=== PATIENT | male | born 1945 | race Caucasian/White ===

== ENCOUNTER → 2018-06-02 | Day surgery (SDC) | payer MEDICARE, OTHER ==
[~2018-06-02] VITALS: Ht 165.1 cm; Wt 74.8 kg
[~2018-06-02] MED LIST: ATORVASTATIN CA20 MG PO; AVODART0.5 MG PO; BENZOCAINE 20% SPR 60 ML CAN ONE; DIGOXIN125 MCG PO; ELIQUIS PO; LIDOCAINE HCL 2% LOCAL INJ 5 ML SDV VIAL INJ ONE; METOPROLOL SUCC25 MG PO; PROPOFOL IV EMULSION 10 MG/ML 20 ML VIAL ONE; SODIUM CHLORIDE 0.9% 1000ML 1,000 ML ONE
[2018-06-02 09:52] LABS: BASOPHILS % 0.4 % (0.0-1.0); EOSINOPHILS # (AUTO) 0.2 (0.0-0.4); HEMOGLOBIN 14.9 g/dL (14.0-18.0); LYMPHOCYTES # (AUTO) 1.6 (1.0-3.2); LYMPHOCYTES % 31.5 % (18.0-39.1); MEAN CORPUSCULAR HEMOGLOBIN 31.4 pg (28-32); MEAN CORPUSCULAR HGB CONC 33.9 g/dL (31-35); MEAN CORPUSCULAR VOLUME 92.6 fL (81-99); MONOCYTES # (AUTO) 0.4 (0.2-0.8); MONOCYTES % 8.4 % (4.4-11.3); NEUTROPHILS # (AUTO) 2.8 (2.1-6.9); NEUTROPHILS % 56.3 % (38.7-80.0); PLATELET COUNT 174 x10e3/uL (140-360); RED BLOOD COUNT 4.75 x10e6/uL (4.3-5.7); RED CELL DISTRIBUTION WIDTH 12.2 % (11.7-14.4)
[2018-06-02 10:28] LABS: ANION GAP 10.8 mmol/L (8-16); BLOOD UREA NITROGEN 13 mg/dL (7-26); BUN/CREATININE RATIO 12 (6-25); CALCIUM 9.5 mg/dL (8.4-10.2); CARBON DIOXIDE 28 mmol/L (22-29); CHLORIDE 104 mmol/L (98-107); CREATININE, SERUM 1.09 mg/dL (0.72-1.25); EST GLOMERULAR FILTRATION RATE > 60 ML/MIN (60-); GLUCOSE 102 mg/dL (74-118); POTASSIUM 4.8 mmol/L (3.5-5.1); SODIUM 138 mmol/L (136-145)
[2018-06-02 10:30] VITALS: BP 129/88
[2018-06-02 12:38] VITALS: BP 116/69
[2018-06-02 12:46] VITALS: BP 123/75
[2018-06-02 12:50] VITALS: BP 130/75
--- OUTSIDE RECORDS SUMMARY | 2018-06-03 17:07 | XMS REPORT ---
Author Author Ashlee Hu Organization [employer] Address Unknown Phone Unavailable Care Team Providers Care Cook Syrup Maker Name Role Phone Ashlee Hu CP Unavailable Encounters Encounter Location Date Requesting pain meds without office visit [facility] Aug 17, 2014 pain in bilat knees, hips, legs Zoc Doc [facility] Jul 28, 2014 MRI Wrist Right [facility] Aug 01, 2014 New Appointment Request [facility] Aug 10, 2014 Social History Social History Element Qualifiers Date Reported Smoking status: . Are you a: Former Smoker Jul 28, 2014 alcohol yes. Jul 28, 2014 Summary Purpose [employer]ClinicalWorks Submission
--- OUTSIDE RECORDS SUMMARY | 2018-06-03 17:07 | XMS REPORT ---
Author Author Ashlee Hu Organization [employer] Address Unknown Phone Unavailable Care Team Providers Care Male Infertility Specialist Name Role Phone Ashlee Hu CP Unavailable Encounters Encounter Location Date Requesting pain meds without office visit [facility] Aug 17, 2014 Follow up Routine [facility] Aug 22, 2014 rx [facility] Aug 31, 2014 Follow up Routine [facility] Sep 19, 2014 pain in bilat knees, hips, legs Zoc Doc [facility] Jul 28, 2014 MRI Wrist Right [facility] Aug 01, 2014 New Appointment Request [facility] Aug 10, 2014 Update Demographics - Personal Info [facility] Oct 04, 2014 Problems Problem Type Condition ICD-9 Code Onset Dates Condition Status Problem Generalized osteoarthrosis, involving multiple sites 715.09 Active Social History Social History Element Qualifiers Date Reported Smoking status: . Are you a: Former Smoker Sep 19, 2014 alcohol yes. Sep 19, 2014 Summary Purpose [employer]ClinicalWorks Submission
--- OUTSIDE RECORDS SUMMARY | 2018-06-03 17:07 | XMS REPORT ---
Author Author Ashlee Hu Organization [employer] Address Unknown Phone Unavailable Care Team Providers Care Cordage Sales Representative Name Role Phone Ashlee Hu CP Unavailable Encounters Encounter Location Date Requesting pain meds without office visit [facility] Aug 17, 2014 Follow up Routine [facility] Aug 22, 2014 rx [facility] Aug 31, 2014 pain in bilat knees, hips, legs Zoc Doc [facility] Jul 28, 2014 MRI Wrist Right [facility] Aug 01, 2014 New Appointment Request [facility] Aug 10, 2014 Social History Social History Element Qualifiers Date Reported Smoking status: . Are you a: Former Smoker Aug 22, 2014 alcohol yes. Aug 22, 2014 Summary Purpose [employer]ClinicalWorks Submission
--- OUTSIDE RECORDS SUMMARY | 2018-06-03 17:07 | XMS REPORT | Continuity of Care Document ---
Author Author [facility] Address Unknown Phone Unavailable Problems Problem Status Onset Date Classification Date Reported Comments Source osteoporosis screening Active Diagnosis 08/23/2014 Ashlee Najam Headache Active Diagnosis 08/23/2014 Ashlee Najam Generalized osteoarthrosis, involving multiple sites Active Problem 10/17/2015 Ashlee Najam Cervicalgia Active Diagnosis 08/23/2014 Ashlee Najam Pain in joint, hand Active Diagnosis 08/04/2014 Ashlee Najam Stiffness of joint, not elsewhere classified, hand Active Diagnosis 08/04/2014 Ashlee Najam Effusion of hand joint Active Diagnosis 08/04/2014 Ashlee Najam Swelling of limb Active Diagnosis 08/04/2014 Ashlee Najam Pain in joint, pelvic region and thigh Active Diagnosis 07/30/2014 Ashlee Najam Pain in joint, lower leg Active Diagnosis 07/30/2014 Ashlee Najam Primary osteoarthritis of knees, bilateral Active Problem 10/17/2015 Ashlee Najam Finger pain, right Active Diagnosis 09/19/2015 Ashlee Najam Trigger middle finger of right hand Active Diagnosis 09/19/2015 Ashlee Najam Counseling NOS Active Diagnosis 09/19/2015 Ashlee Najam Medications Medication Details Route Status Patient Instructions Ordering Provider Order Date Source Diclofenac Sodium 1 tab(s) Orally Active 75 MG Orally Twice a day as needed Najam 03/16/2016 Ashlee Najam Voltaren as directed Transdermal Active 1 % Transdermal tid prn to bilateral hands Najam 09/18/2015 Ashlee Najam Naproxen 1 tablet Orally Active 250 MG Orally as needed Najam Ashlee Najam Avodart 1 capsule Orally Active 0.5 MG Orally twice a week Najam Ashlee Najam Allergies, Adverse Reactions, Alerts Substance Category Reaction Severity Reaction type Status Date Reported Comments Source sulfa Adverse Reaction Info Not Available Adverse Reaction Active 09/18/2015 Ashlee Najam Immunizations Immunization Date Given Site Status Last Updated Comments Source Results Order Name Results Value Reference Range Date Interpretation Comments Source Vital Signs Vital Sign Value Date Comments Source Height 65 09/18/2015 Ashlee Hu Diastolic (mm Hg) 74 09/18/2015 Ashlee Hu Systolic (mm Hg) 127 09/18/2015 Ashlee Hu Weight 171.4 09/18/2015 Ashleechristiano Hu Height 65 08/22/2014 Ashleechristiano Hu Diastolic (mm Hg) 80 08/22/2014 Ashlee Naalix Systolic (mm Hg) 148 08/22/2014 Ashlee Hu Weight 173 08/22/2014 Ashlee Hu Height 65 07/28/2014 Ashleechristiano Hu Diastolic (mm Hg) 83 07/28/2014 Ashleechristiano Hu Systolic (mm Hg) 132 07/28/2014 Ashlee Hu Weight 174 07/28/2014 Ashlee Hu Encounters Location Location Details Encounter Type Encounter Number Reason For Visit Attending Provider ADM Date DC Date Status Source Rheumatology Clinic pain in bilat knees, hips, legs Zoc Doc [id number] 07/28/2014 07/28/2014 [facility] Clinic pain in bilat knees, hips, legs Zoc Doc [id number] 07/28/2014 07/28/2014 [facility] Rhe[facility] Clinic pain in bilat knees, hips, legs Zoc Doc [id number] 07/28/2014 07/28/2014 [facility] Rhe[facility]ology Clinic pain in bilat knees, hips, legs Zoc Doc [id number] 07/28/2014 07/28/2014 [facility] Rhe[facility] Clinic pain in bilat knees, hips, legs Zoc Doc [id number] 07/28/2014 07/28/2014 [facility] Clinic pain in bilat knees, hips, legs Zoc Doc [id number] 07/28/2014 07/28/2014 [facility] Clinic pain in bilat knees, hips, legs Zoc Doc [id number] 07/28/2014 07/28/2014 [facility] Clinic pain in bilat knees, hips, legs Zoc Doc [id number] 07/28/2014 07/28/2014 [facility] Clinic pain in bilat knees, hips, legs Zoc Doc [id number] 07/28/2014 07/28/2014 [facility] Clinic pain in bilat knees, hips, legs Zoc Doc [id number] 07/28/2014 07/28/2014 [facility] Clinic MRI Wrist Right [id number] 08/01/2014 08/01/2014 [facility] MRI Wrist Right [id number] 08/01/2014 08/01/2014 [facility] MRI Wrist Right [id number] 08/01/2014 08/01/2014 [facility] MRI Wrist Right [id number] 08/01/2014 08/01/2014 [facility] MRI Wrist Right [id number] 08/01/2014 08/01/2014 [facility] MRI Wrist Right [id number] 08/01/2014 08/01/2014 [facility] MRI Wrist Right [id number] 08/01/2014 08/01/2014 [facility] MRI Wrist Right [id number] 08/01/2014 08/01/2014 [facility] MRI Wrist Right [id number] 08/01/2014 08/01/2014 [facility] New Appointment Request [id number] 08/10/2014 08/10/2014 [facility] New Appointment Request [id number] 08/10/2014 08/10/2014 [facility] New Appointment Request [id number] 08/10/2014 08/10/2014 [facility] New Appointment Request [id number] 08/10/2014 08/10/2014 [facility] New Appointment Request [id number] 08/10/2014 08/10/2014 [facility] New Appointment Request [id number] 08/10/2014 08/10/2014 [facility] New Appointment Request [id number] 08/10/2014 08/10/2014 [facility] New Appointment Request [id number] 08/10/2014 08/10/2014 [facility] Requesting pain meds without office visit [id number] 08/17/2014 08/17/2014 [facility] Requesting pain meds without office visit [id number] 08/17/2014 08/17/2014 [facility] Requesting pain meds without office visit [id number] 08/17/2014 08/17/2014 [facility] Requesting pain meds without office visit [id number] 08/17/2014 08/17/2014 [facility] Requesting pain meds without office visit [id number] 08/17/2014 08/17/2014 [facility] Requesting pain meds without office visit [id number] 08/17/2014 08/17/2014 [facility] Requesting pain meds without office visit [id number] 08/17/2014 08/17/2014 [facility] Requesting pain meds without office visit [id number] 08/17/2014 08/17/2014 [facility] Follow up Routine [id number] 08/22/2014 08/22/2014 [facility] Follow up Routine [id number] 08/22/2014 08/22/2014 [facility] Follow up Routine [id number] 08/22/2014 08/22/2014 [facility] Follow up Routine [id number] 08/22/2014 08/22/2014 [facility] Follow up Routine [id number] 08/22/2014 08/22/2014 [facility] Follow up Routine [id number] 08/22/2014 08/22/2014 [facility] rx [id number] 08/31/2014 08/31/2014 [facility] rx [id number] 08/31/2014 08/31/2014 [facility] rx [id number] 08/31/2014 08/31/2014 [facility] rx [id number] 08/31/2014 08/31/2014 [facility] rx [id number] 08/31/2014 08/31/2014 [facility] Follow up Routine [id number] 09/19/2014 09/19/2014 [facility] Follow up Routine [id number] 09/19/2014 09/19/2014 [facility] Follow up Routine [id number] 09/19/2014 09/19/2014 [facility] Follow up Routine [id number] 09/19/2014 09/19/2014 [facility] Update Demographics - Personal Info [id number] 10/05/2014 10/05/2014 [facility] Update Demographics - Personal Info [id number] 10/05/2014 10/05/2014 [facility] Update Demographics - Personal Info [id number] 10/05/2014 10/05/2014 [facility] Update Demographics - Personal Info [id number] 10/05/2014 10/05/2014 [facility] Rhe[facility]ology [facility] patient credit [id number] 01/13/2015 01/13/2015 [facility]ology [facility] patient credit [id number] 01/13/2015 01/13/2015 [facility] patient credit [id number] 01/13/2015 01/13/2015 [facility] Rheumatology [facility] routine follow up [id number] 01/16/2015 01/16/2015 [facility] routine follow up [id number] 01/16/2015 01/16/2015 [facility] routine follow up [id number] 01/16/2015 01/16/2015 [facility] routine follow up [id number] 05/15/2015 05/15/2015 [facility] routine follow up [id number] 05/15/2015 05/15/2015 [facility] routine follow up [id number] 05/15/2015 05/15/2015 [facility] routine [id number] 09/18/2015 09/18/2015 [facility] routine [id number] 09/18/2015 09/18/2015 [facility] routine [id number] 09/18/2015 09/18/2015 [facility] MRI results [id number] 09/21/2015 09/21/2015 [facility] MRI results [id number] 09/21/2015 09/21/2015 [facility] Clinic needs rx [id number] 10/16/2015 10/16/2015 Ashlee Hu Procedures Procedure Code Date Perfomer Comments Source
--- OUTSIDE RECORDS SUMMARY | 2018-06-03 17:07 | XMS REPORT ---
Author Author Ashlee Hu Organization [employer] Address Unknown Phone Unavailable Care Team Providers Care Casino Slot Supervisor Name Role Phone Ashlee Hu CP Unavailable Allergies, Adverse Reactions, Alerts Substance Reaction Event Type sulfa Info Not Available Non Drug Allergy Encounters Encounter Location Date pain in bilat knees, hips, legs Zo Doc [facility] Jul 28, 2014 Problems Problem Type Condition ICD-9 Code Onset Dates Condition Status Assessment Pain in joint, hand 719.44 Active Assessment Pain in joint, pelvic region and thigh 719.45 Active Assessment Pain in joint, lower leg 719.46 Active Medications Medication Code System Code Instructions Start Date End Date Status Dosage Naproxen MEDISPAN [address]-24 250 MG Orally as needed Active 1 tablet Avodart MEDISPAN [address]-99 0.5 MG Orally Once a day Active 1 capsule Social History Social History Element Qualifiers Date Reported Smoking status: . Are you a: Former Smoker Jul 28, 2014 alcohol yes. Jul 28, 2014 Vital Signs Date/Time: Jul 28, 2014 Height 65 in Blood Pressure Diastolic 83 mm Hg Blood Pressure Systolic 132 mm Hg Weight 174 lbs Summary Purpose eClinicalWorks Submission
--- OUTSIDE RECORDS SUMMARY | 2018-06-03 17:07 | XMS REPORT ---
Author Author Ashlee Hu Organization [employer] Address Unknown Phone Unavailable Care Team Providers Care Fiberglass Laminator Name Role Phone Ashlee Hu CP Unavailable Encounters Encounter Location Date pain in bilat knees, hips, legs Zoc Doc [facility] Jul 28, 2014 MRI Wrist Right [facility] Aug 01, 2014 Problems Problem Type Condition ICD-9 Code Onset Dates Condition Status Assessment Pain in joint, hand 719.44 Active Assessment Stiffness of joint, not elsewhere classified, hand 719.54 Active Assessment Effusion of hand joint 719.04 Active Assessment Swelling of limb 729.81 Active Social History Social History Element Qualifiers Date Reported Smoking status: . Are you a: Former Smoker Jul 28, 2014 alcohol yes. Jul 28, 2014 Summary Purpose [employer]ClinicalWorks Submission
--- OUTSIDE RECORDS SUMMARY | 2018-06-03 17:07 | XMS REPORT ---
Author Author Ashlee Hu Organization [employer] Address Unknown Phone Unavailable Care Team Providers Care Adoption Manager Name Role Phone Fritz Ashlee CP Unavailable Allergies, Adverse Reactions, Alerts Substance Reaction Event Type sulfa Info Not Available Non Drug Allergy Encounters Encounter Location Date Requesting pain meds without office visit [facility] Aug 17, 2014 Follow up Routine [facility] Aug 22, 2014 rx [facility] Aug 31, 2014 Follow up Routine [facility] Sep 19, 2014 pain in bilat knees, hips, legs Zoc Doc [facility] Jul 28, 2014 routine follow up [facility] May 15, 2015 MRI Wrist Right [facility] Aug 01, 2014 routine [facility] Sep 18, 2015 New Appointment Request [facility] Aug 10, 2014 patient credit [facility] January 13, 2015 Update Demographics - Personal Info [facility] Oct 04, 2014 routine follow up [facility] January 16, 2015 Problems Problem Type Condition ICD-9 Code Onset Dates Condition Status Problem Generalized osteoarthrosis, involving multiple sites 715.09 Active Assessment Primary osteoarthritis of knees, bilateral M17.0 Active Problem Primary osteoarthritis of knees, bilateral M17.0 Active Assessment Finger pain, right M79.644 Active Assessment Trigger middle finger of right hand M65.331 Active Assessment Counseling NOS Z71.9 Active Medications Medication Code System Code Instructions Start Date End Date Status Dosage Avodart MEDISPAN [address]-55 0.5 MG Orally twice a week Active 1 capsule Voltaren MEDISPAN [address]-00 1 % Transdermal tid prn to bilateral hands Sep 18, 2015 Mar 16, 2016 Active as directed Diclofenac Sodium MEDISPAN [address]-63 75 MG Orally Twice a day as needed Mar 16, 2016 Active 1 tab(s) Social History Social History Element Qualifiers Date Reported Smoking status: . Are you a: Former Smoker Sep 18, 2015 alcohol yes. Sep 18, 2015 Vital Signs Date/Time: Sep 18, 2015 Height 65 in Blood Pressure Diastolic 74 mm Hg Blood Pressure Systolic 127 mm Hg Weight 171.4 lbs Results CBC w/DIFF, PLATELET CT. Summary Purpose eClinicalWorks Submission
--- OUTSIDE RECORDS SUMMARY | 2018-06-03 17:07 | XMS REPORT ---
Author Author Ashlee Hu Organization [employer] Address Unknown Phone Unavailable Care Team Providers Care Sweet Dough Mixer Name Role Phone Ashlee Hu CP Unavailable [...] follow up [facility]ology [facility] January 16, 2015 MRI results [facility] Sep 21, 2015 needs rx [facility] October 16, 2015 routine follow up [facility] May 15, 2015 routine [facility] Sep 18, 2015 Problems Problem Type Condition ICD-9 Code Onset Dates Condition Status Problem Generalized osteoarthrosis, involving multiple sites 715.09 Active Problem Primary osteoarthritis of knees, bilateral M17.0 Active Medications Medication Code System Code Instructions Start Date End Date Status Dosage Voltaren MEDISPAN [address]-94 1 % Transdermal tid prn to bilateral hands Sep 18, 2015 Apr 13, 2016 Active as directed Social History Social History Element Qualifiers Date Reported Smoking status: . Are you a: Former Smoker Sep 18, 2015 alcohol yes. Sep 18, 2015 Summary Purpose [employer]ClinicalWorks Submission
--- OUTSIDE RECORDS SUMMARY | 2018-06-03 17:07 | XMS REPORT ---
Author Author Ashlee Hu Organization [employer] Address Unknown Phone Unavailable Care Team Providers Care Family Centered Specialist Name Role Phone Ashlee Hu CP [...]
--- OUTSIDE RECORDS SUMMARY | 2018-06-03 17:07 | XMS REPORT ---
Author Author Ashlee Hu Organization [employer] Address Unknown Phone Unavailable Care Team Providers Care Egg Setter Name Role Phone Ashlee Hu CP Unavailable [...] MRI results [facility] Sep 21, 2015 routine follow up [facility] May 15, 2015 routine [facility] Sep 18, 2015 Problems Problem Type Condition ICD-9 Code Onset Dates Condition Status Problem Generalized osteoarthrosis, involving multiple sites 715.09 Active Problem Primary osteoarthritis of knees, bilateral M17.0 Active Social History Social History Element Qualifiers Date Reported Smoking status: . Are you a: Former Smoker Sep 18, 2015 alcohol yes. Sep 18, 2015 Summary Purpose eClinicalWorks Submission
== END | disposition home or self-care (01) ==
LOC: CATH LAB 12:00 → EDSTATUS 12:00
PROVIDERS: ATTEND Internal Medicine Cardiovascular Disease
DX: I48.91 Unspecified atrial fibrillation (principal); I34.0 Nonrheumatic mitral (valve) insufficiency; E78.5 Hyperlipidemia, unspecified; I10 Essential (primary) hypertension
CPT/HCPCS: 36415; 80048; 85025; 93312; 93320; 93325; J2001; J7030

== ENCOUNTER → 2018-10-14 | Outpatient (CLI) | payer MEDICARE, OTHER ==
[~2018-10-14] MED LIST changes: -BENZOCAINE 20% SPR 60 ML CAN ONE; -LIDOCAINE HCL 2% LOCAL INJ 5 ML SDV VIAL INJ ONE; -PROPOFOL IV EMULSION 10 MG/ML 20 ML VIAL ONE; -SODIUM CHLORIDE 0.9% 1000ML 1,000 ML ONE
--- NOTE | 2018-10-14 13:13 | Diagnostic Imaging Report ---
CT BRAIN WO HISTORY: TIA COMPARISON: None. Technique: Noncontrast axial scans were obtained from skull base to the vertex. Coronal and sagittal reconstructions obtained from the axial data. One or more of the following dose reduction techniques were used: Automated exposure control, adjustment of the mA and/or kV according to patient size, and/or utilization of iterative reconstruction technique. DISCUSSION: Scalp/Skull: Unremarkable. Brain sulci: Mildly prominent. Ventricles: Compensatory dilatation. Extra-axial spaces: No masses or fluid collections. Carotid siphon calcifications are present. Parenchyma: Mild bilateral deep white matter hypodensity is likely chronic microvascular ischemic change. Otherwise, no masses, hemorrhage, or large vascular territory acute infarct. Dural sinuses: No abnormal densities. Sellar/Suprasellar region: Intact. Skull base: Intact. Incidental findings: None. IMPRESSION: 1. No acute intracranial abnormalities. 2. Mild supratentorial chronic microvascular ischemic change. Mild generalized cerebral volume loss. Signed by: Dr. Sunday Tripathi M.D. on 10/14/2018 1:10 PM
== END ==
LOC: CT 12:26
PROVIDERS: ATTEND Internal Medicine Cardiovascular Disease
DX: G45.9 Transient cerebral ischemic attack, unspecified (principal)
CPT/HCPCS: 70450

== ENCOUNTER 2019-01-04 17:58 | Emergency (ER) | payer MEDICARE, OTHER ==
[~2019-01-04] VITALS: Ht 165.1 cm; Wt 74.8 kg
--- OUTSIDE RECORDS SUMMARY | 2019-01-04 18:01 | XMS REPORT ---
Author [facility] Address Unknown Phone Unavailable Care Team Providers Care Solderer Electronic Name Role Phone Miesha ASTUDILLO Unavailable Unavailable Payers Payer Name Policy Type Policy Number Effective Date Expiration Date Problems This patient has no known problems. Allergies, Adverse Reactions, Alerts Allergy Name Allergy Type Status Severity Reaction(s) Onset Date Inactive Date Treating Clinician Comments Sulfa (Sulfonamide Antibiotics) DA Active SV 2018-06-03 00:00:00 No Known Allergies DA Active U 2018-06-02 00:00:00 Medications This patient has no known medications. Results Test Description Test Time Test Comments Text Results Atomic Results Result Comments CT BRAIN WO 2018-10-14 13:07:00 [facility] [address] [place] [address] Patient Name: SHRUTHI MOODY MR #: [id number] : 1945 Age/Sex: 73/M Req #: [id number] Adm Physician: Ordered by: JAMIE ASTUDILLO MD Report #: [id number] Location: [place] Room/Bed: Procedure: [id number] CT/CT BRAIN WO Exam Date: 10/14/18 Exam Time: 1245 REPORT STATUS: Signed CT BRAIN WO HISTORY: TIA COMPARISON: None. Technique: Noncontrast axial scans were obtained from skull base to the vertex. Coronal and sagittal reconstructions obtained from the axial data. One or more of the following dose reduction techniques were used: Automated exposure control, adjustment of the mA and/or kV according to patient size, and/or utilization of iterative reconstruction technique. DISCUSSION: Scalp/Skull: Unremarkable. Brain sulci: Mildly prominent. Ventricles: Compensatory dilatation. Extra-axial spaces: No masses or fluid collections. Carotid siphon calcifications are present. Parenchyma: Mild bilateral deep white matter hypodensity is likely chronic microvascular ischemic change. Otherwise, no masses, hemorrhage, or large vascular territory acute infarct. Dural sinuses: No abnormal densities. Sellar/Suprasellar region: Intact. Skull base: Intact. Incidental findings: None. IMPRESSION: 1. No acute intracranial abnormalities. 2. Mild supratentorial chronic microvascular ischemic change. Mild generalized cerebral volume loss. Signed by: Dr. Sunday Tripathi M.D. on 10/14/2018 1:10 PM Dictated By: SUNDAY TRIPATHI MD [id number] Transcribed By: HOWARD on 10/14/18 1310 COPY TO: JAMIE ASTUDILLO MD
--- OUTSIDE RECORDS SUMMARY | 2019-01-04 18:01 | XMS REPORT | Summary of Care ---
Author Organization Unknown Address Unknown Phone Unavailable Encounter HQ Germanr_paxton(JERI) [id number] Date(s): 08/30/14 - 08/30/14 [facility] Outpatient Imaging [place] [address], [place] [address] Discharge Disposition: Home Physician Attending: Ashlee Hu MD Reason for Visit V82.81 - SCREEN - OSTEOP Problem List No data available for this section Allergies, Adverse Reactions, Alerts No data available for this section Medications No data available for this section Medications Administered During Your Visit No data available for this section Immunizations No data available for this section
--- OUTSIDE RECORDS SUMMARY | 2019-01-04 18:01 | XMS REPORT | Continuity of Care Document ---
Author Author [facility] Interface Address Unknown Phone Unavailable Problems Problem Status Onset Date Classification Date Reported Comments Source DX: R10.12 Active 08/25/2018 [facility] OSTEO Active 08/23/2014 [facility] Pain in joint, hand Active Diagnosis 08/04/2014 Ashlee Naalix Stiffness of joint, not elsewhere classified, hand Active Diagnosis 08/04/2014 Ashlee Nakevanm Effusion of hand joint Active Diagnosis 08/04/2014 Ashlee Najam Swelling of limb Active Diagnosis 08/04/2014 Ashlee Naalix Generalized osteoarthrosis, involving multiple sites Active Problem 10/17/2015 Ashlee Nakevanm Pain in joint, pelvic region and thigh Active Diagnosis 07/30/2014 Aslhee Nakevanm Pain in joint, lower leg Active Diagnosis 07/30/2014 Ashlee Nakevanm Primary osteoarthritis of knees, bilateral Active Problem 10/17/2015 Ashlee Nakevanm Finger pain, right Active Diagnosis 09/19/2015 Ashlee Nakevanm Trigger middle finger of right hand Active Diagnosis 09/19/2015 [facility] NOS Active Diagnosis 09/19/2015 [facility]leechristiano Encarn[facility] osteoporosis screening Active Diagnosis 08/23/2014 Ashlee Nakevanm Headache Active Diagnosis 08/23/2014 Ashlee Nakevanm Cervicalgia Active Diagnosis 08/23/2014 Ashlee Naalix LEFT UPPER QUADRANT PAIN Active [facility] Medications Medication Details Route Status Patient Instructions Ordering Provider Order Date Source Diclofenac Sodium 1 tab(s) Orally Active 75 MG Orally Twice a day as needed Najam 03/16/2016 Ashlee Naalix Voltaren as directed Transdermal Active 1 % Transdermal tid prn to bilateral hands Najam 09/18/2015 Ashlee Naalix Naproxen 1 tablet Orally Active 250 MG Orally as needed Najam Ashlee Encarnacionm Avodart 1 capsule Orally Active 0.5 MG Orally twice a week Najam Ashlee Hu Allergies, Adverse Reactions, Alerts Substance Category Reaction Severity Reaction type Status Date Reported Comments Source sulfa Adverse Reaction Info Not Available Adverse Reaction Active 09/18/2015 Ashlee Hu Immunizations Immunization Date Given Site Status Last Updated Comments Source Results Order Name Results Value Reference Range Date Interpretation Comments Source Abdomen/Pelvis w IV contrast CT Abdomen/Pelvis w IV contrast CT EXAM: CT ABDOMEN PELVIS WITH CONTRAST CLINICAL INDICATION: 73 years old Male with - R10.12 Left upper quadrant pain, pain with urinating, history of urinary tract infection. TECHNIQUE: GI CONTRAST: None. IV CONTRAST: 100 cc of Omnipaque-300 Axial post-contrast images were obtained from the lower chest to the symphysis pubis. Coronal and sagittal reconstruction images were performed. CT imaging performed at this location utilizes radiation dose optimization techniques which include one or more of the following: -Automated exposure control -Adjustment of the mA and/or kV according to patient size -Use of iterative reconstruction technique CT Radiation Dose DLP 516 mGy-cm COMPARISON: None. FINDINGS: LOWER CHEST: 6 mm right lower lobe nodule (series 3, image 19). The visualized lung bases are otherwise clear. Normal size of the heart is noted. SOLID ORGANS: Scattered hepatic cysts measuring up to 2.3 cm. A few additional subcentimeter hepatic hypodensities are noted which are too small to characterize. No intrahepatic biliary ductal dilatation is seen. No calcified gallstone is noted. The spleen, pancreas, and adrenal glands are normal in appearance. Both kidneys demonstrate normal corticomedullary phase of enhancement. No renal/ureteral calculus, hydronephrosis, or mass is apparent. 4 mm right renal cortical hypodensity which is too small to characterize, though statistically likely represents a cyst. BOWEL: Small hiatal hernia. The small bowel and colon are normal in caliber without wall thickening. A normal appendix is identified. PERITONEUM: No free intraperitoneal fluid or air. Small fat-containing left inguinal hernia. RETROPERITONEUM: Normal caliber of the abdominal aorta is noted. No lymphadenopathy is seen. PELVIS: Mild bladder wall thickening. Prostate is mildly enlarged measuring 5.0 cm transverse. MUSCULOSKELETAL: No acute osseous abnormality is seen. No destructive lytic or blastic osseous lesion is noted. IMPRESSION: 1. Mild prostatomegaly. 2. Mild bladder wall thickening. Consider correlation with urinalysis. 3. Small hiatal hernia. 4. Scattered liver cysts. Additional subcentimeter hepatic hypodensities are too small to characterize, though may also represent cysts. 5. Subcentimeter right renal cortical hypodensity which is too small to characterize, though statistically likely represents a cyst. 6. Right lower lobe pulmonary nodule measuring 6 mm. If the patient has high-risk factors for primary pulmonary malignancy, follow up CT chest at 6-12 months and then at 18-24 months if no change is advised. If the patient is at low risk, CT chest at 6-12 months is suggested with optional CT at 18-24 months. SL: [id number] 08/28/2018 - - Read by: Xander Rodriguez MD Dictated Date/time: 08/28/18 09:22 Electronically Signed by: Xander Rodriguez MD 08/28/18 09:58 FINAL REPORT [facility] Vital Signs Vital Sign Value Date Comments Source Height 65 09/18/2015 Ashlee Najam Diastolic (mm Hg) 74 09/18/2015 Ashlee Najam Systolic (mm Hg) 127 09/18/2015 Ashlee Najam Weight 171.4 09/18/2015 Ashlee Najam Height 65 08/22/2014 Ashlee Najam Diastolic (mm Hg) 80 08/22/2014 Ashlee Najam Systolic (mm Hg) 148 08/22/2014 Ashlee Najam Weight 173 08/22/2014 Ashlee Najam Height 65 07/28/2014 Ashlee Najam Diastolic (mm Hg) 83 07/28/2014 Ashlee Najam Systolic (mm Hg) 132 07/28/2014 Ashlee Najam Weight 174 07/28/2014 Ashlee Najam Encounters Location Location Details Encounter Type Encounter Number Reason For Visit Attending Provider ADM Date DC Date Status Source Rheumatology Clinic pain in bilat knees, hips, legs [facility] Doc [id number] 07/28/2014 07/28/2014 Ashlee Najam Rheumatology Clinic pain in bilat knees, hips, legs [facility] Doc [id number] 07/28/2014 07/28/2014 Ashlee Najam Rheumatology Clinic pain in bilat knees, hips, legs [facility] Doc [id number] 07/28/2014 07/28/2014 Ashlee Najam [facility]ology Clinic pain in bilat knees, hips, legs [facility] Doc [id number] 07/28/2014 07/28/2014 Ashlee Najam [facility] pain in bilat knees, hips, legs [facility] Doc [id number] 07/28/2014 07/28/2014 Ashlee Najam [facility] pain in bilat knees, hips, legs [facility] Doc [id number] 07/28/2014 07/28/2014 Ashlee Najam [facility] pain in bilat knees, hips, legs [facility] Doc [id number] 07/28/2014 07/28/2014 Ashlee Najam [facility] pain in bilat knees, hips, legs [facility] Doc [id number] 07/28/2014 07/28/2014 Ashlee Naja [facility] pain in bilat knees, hips, legs [facility] Doc [id number] 07/28/2014 07/28/2014 Ashlee Naja [facility] pain in bilat knees, hips, legs Zoc Doc [id number] 07/28/2014 07/28/2014 Ashlee Naja [facility] MRI Wrist Right [id number] 08/01/2014 08/01/2014 Ashlee Naja [facility] MRI Wrist Right [id number] 08/01/2014 08/01/2014 Ashlee Naja [facility] MRI Wrist Right [id number] 08/01/2014 08/01/2014 Ashlee Naja [facility] MRI Wrist Right [id number] 08/01/2014 08/01/2014 [facility] Rheumatology Clinic MRI Wrist Right [id number] 08/01/2014 08/01/2014 [facility] Rheumatology Clinic MRI Wrist Right [id number] 08/01/2014 08/01/2014 [facility] Rheumatology Clinic MRI Wrist Right [id number] 08/01/2014 08/01/2014 [facility] Rheumatology Clinic MRI Wrist Right [id number] 08/01/2014 08/01/2014 [facility] Rheumatology Clinic MRI Wrist Right [id number] 08/01/2014 08/01/2014 [facility] Rheumatology Clinic New Appointment Request [id number] 08/10/2014 08/10/2014 [facility] Rheumatology Clinic New Appointment Request [id number] 08/10/2014 08/10/2014 [facility] Rheumatology Clinic New Appointment Request [id number] 08/10/2014 08/10/2014 [facility] Rheumatology Clinic New Appointment Request [id number] 08/10/2014 08/10/2014 [facility] Rheumatology Clinic New Appointment Request [id number] 08/10/2014 08/10/2014 [facility] Rheumatology Clinic New Appointment Request [id number] 08/10/2014 08/10/2014 [facility] Rheumatology Clinic New Appointment Request [id number] 08/10/2014 08/10/2014 [facility] Rheumatology Clinic New Appointment Request [id number] 08/10/2014 08/10/2014 [facility] Rheumatology Clinic Requesting pain meds without office visit [id number] 08/17/2014 08/17/2014 [facility]ology Clinic Requesting pain meds without office visit [id number] 08/17/2014 08/17/2014 [facility] Rheumatology Clinic Requesting pain meds without office visit [id number] 08/17/2014 08/17/2014 [facility] Rheumatology Clinic Requesting pain meds without office visit [id number] 08/17/2014 08/17/2014 [facility] Rheumatology Clinic Requesting pain meds without office visit [id number] 08/17/2014 08/17/2014 [facility] Rheumatology Clinic Requesting pain meds without office visit [id number] 08/17/2014 08/17/2014 [facility] Rheumatology Clinic Requesting pain meds without office visit [id number] 08/17/2014 08/17/2014 [facility] Rheumatology Clinic Requesting pain meds without office visit [id number] 08/17/2014 08/17/2014 [facility] Rheumatology Clinic Follow up Routine [id number] 08/22/2014 08/22/2014 [facility] Rheumatology Clinic Follow up Routine [id number] 08/22/2014 08/22/2014 Ashlee Encarnacion Rhe[facility]ology Clinic Follow up Routine [id number] 08/22/2014 08/22/2014 [facility] Follow up Routine [id number] 08/22/2014 08/22/2014 [facility] Follow up Routine [id number] 08/22/2014 08/22/2014 [facility] Follow up Routine [id number] 08/22/2014 08/22/2014 [facility] [place] [facility] [id number] Ashlee Hu 08/30/2014 08/31/2014 [facility] [place] [facility] rx [id number] 08/31/2014 08/31/2014 [facility] rx [id number] 08/31/2014 08/31/2014 [facility] rx [id number] 08/31/2014 08/31/2014 [facility] rx [id number] 08/31/2014 08/31/2014 [facility] rx [id number] 08/31/2014 08/31/2014 [facility] Follow up Routine [id number] 09/19/2014 09/19/2014 [facility] Follow up Routine [id number] 09/19/2014 09/19/2014 [facility] Rheumatology Clinic Follow up Routine [id number] 09/19/2014 09/19/2014 [facility] Rheumatology Clinic Follow up Routine [id number] 09/19/2014 09/19/2014 [facility] Rheumatology Clinic Update Demographics - Personal Info [id number] 10/05/2014 10/05/2014 [facility] Rheumatology Clinic Update Demographics - Personal Info [id number] 10/05/2014 10/05/2014 [facility] Rheumatology Clinic Update Demographics - Personal Info [id number] 10/05/2014 10/05/2014 [facility] Rheumatology Clinic Update Demographics - Personal Info [id number] 10/05/2014 10/05/2014 [facility] patient credit [id number] 01/13/2015 01/13/2015 [facility] patient credit [id number] 01/13/2015 01/13/2015 [facility] patient credit [id number] 01/13/2015 01/13/2015 [facility] Rheumatology [facility] routine follow up [id number] 01/16/2015 01/16/2015 [facility] Rheumatology [facility] routine follow up [id number] 01/16/2015 01/16/2015 [facility] Rhe[facility] Clinic routine follow up [id number] 01/16/2015 01/16/2015 [facility] Rheumatology Clinic routine follow up [id number] 05/15/2015 05/15/2015 [facility] Rheumatology Clinic routine follow up [id number] 05/15/2015 05/15/2015 [facility] Rheumatology Clinic routine follow up [id number] 05/15/2015 05/15/2015 [facility] Rheumatology Clinic routine [id number] 09/18/2015 09/18/2015 [facility] Rheumatology Clinic routine [id number] 09/18/2015 09/18/2015 [facility] Rheumatology Clinic routine [id number] 09/18/2015 09/18/2015 [facility] Rheumatology Clinic MRI results [id number] 09/21/2015 09/21/2015 [facility] Rheumatology Clinic MRI results [id number] 09/21/2015 09/21/2015 [facility] Rheumatology Clinic needs rx [id number] 10/16/2015 10/16/2015 [facility] Procedures Procedure Code Date Perfomer Comments Source
[2019-01-04] MEDS ORDERED: KETOROLAC TROMETHAMINE 30 MG/ML VIAL IM ONE (18:09)
--- NOTE | 2019-01-04 18:15 | NUR ---
RECEIVED REPORT FROM ELISEO THAT PT WAS PLACED INTO ER ROOM 3 WITH AT BEDSIDE.
--- NOTE | 2019-01-04 18:47 | Diagnostic Imaging Report ---
EXAMINATION: CHEST 2 VIEWS INDICATION: Chest pain. COMPARISON: None FINDINGS: PA and lateral views TUBES and LINES: None. LUNGS: Lungs are well inflated. Bilateral peribronchial cuffing. Left basilar atelectasis. PLEURA: No pleural effusion or pneumothorax. HEART AND MEDIASTINUM: The cardiomediastinal silhouette is unremarkable. BONES AND SOFT TISSUES: No acute osseous lesion. Soft tissues are unremarkable. UPPER ABDOMEN: No free air under the diaphragm. IMPRESSION: Bilateral peribronchial cuffing, which could represent viral etiology or reactive airway disease. Signed by: Dr. Reinier Beaver M.D. on 01/04/2019 6:44 PM
--- NOTE | 2019-01-04 19:54 | NUR ---
DISPO COMPLETE, PT AWAKE ALERT SKIN W/D RESP NONLAB. NAD NOTED. STATES PAIN RELIEVED AFTER TORADOL INJ.
== END 2019-01-04 19:55 | disposition home or self-care (01) ==
LOC: ER 17:58
DX: J90 Pleural effusion, not elsewhere classified (principal); I10 Essential (primary) hypertension; I48.91 Unspecified atrial fibrillation; Z79.01 Long term (current) use of anticoagulants; E78.5 Hyperlipidemia, unspecified
CPT/HCPCS: 71046; 93005; 99283; J1885

== ENCOUNTER 2020-08-16 20:30 | Emergency (ER) | payer MEDICARE, OTHER ==
[~2020-08-16] VITALS: Ht 165.1 cm; Wt 79.4 kg
[2020-08-16 21:32] LABS: HEMATOCRIT 39.8 % (38.2-49.6); HEMOGLOBIN 13.5 g/dL (14.0-18.0)
== END 2020-08-16 22:20 | disposition home or self-care (01) ==
LOC: ER 21:16
DX: R33.9 Retention of urine, unspecified (principal); R31.9 Hematuria, unspecified; I10 Essential (primary) hypertension; I48.91 Unspecified atrial fibrillation; E78.5 Hyperlipidemia, unspecified; N40.0 Benign prostatic hyperplasia without lower urinary tract symptoms; Z98.890 Other specified postprocedural states; Z88.6 Allergy status to analgesic agent; Z88.1 Allergy status to other antibiotic agents; Z88.2 Allergy status to sulfonamides; Z79.02 Long term (current) use of antithrombotics/antiplatelets
CPT/HCPCS: 36415; 85014; 85018; 99283

== ENCOUNTER 2023-02-05 09:58 | Outpatient (RCR) | payer MEDICARE | END 2023-02-07 | LOC: PT 09:58 | PROVIDERS: ATTEND Family Medicine | DX: M54.50 Low back pain, unspecified (principal); M62.81 Muscle weakness (generalized) ==

== ENCOUNTER → 2023-09-08 | Outpatient (REF) | payer MEDICARE | LOC: DX 09:34 | PROVIDERS: ATTEND Physician Assistant | DX: R13.10 Dysphagia, unspecified (principal); K30 Functional dyspepsia; Z68.30 Body mass index [BMI] 30.0-30.9, adult; Z86.010 Personal history of colon polyps; Z87.891 Personal history of nicotine dependence | CPT/HCPCS: 74220 ==